=== PATIENT | male | born 1990 | race Caucasian/White ===

== ENCOUNTER 2017-02-13 20:41 | Emergency (ER) | payer SELFPAY ==
[2017-02-13] MEDS ORDERED: DIAZEPAM INJ 10 MG/2 ML DISP.SYRIN IM ONE (22:04)
--- NOTE | 2017-02-13 22:06 | ER Document Report ---
HPI - HPI Patient complains to provider of: Back pain, neck pain Pain Level: 4 Context: Patient is a 26-year-old male comes emergency department for chief complaint of pain in his mid left back that gives him sharp pains especially when he tries to move or lift, he also has pain that are intermittent in his left neck with intermittent headaches. He states that he hurt himself trying to move a table and he has not recovered since then. He denies any impact injury, numbness, history of IV drug abuse, fevers, nausea or vomiting, abdominal pain. He denies any daily medications or any surgeries. Past Medical History - General Information source: Patient - Social History Smoking Status: Never Smoker Frequency of alcohol use: None Drug Abuse: None Lives with: Family Family History: Reviewed & Not Pertinent - Medical History Medical History: Negative Renal/ Medical History: Denies: Hx Peritoneal Dialysis Surgical Hx: Negative - Immunizations Immunizations up to date: Yes Hx Diphtheria, Pertussis, Tetanus Vaccination: Yes Vertical Provider Document - CONSTITUTIONAL General Appearance: WD/WN, No Apparent Distress - INFECTION CONTROL TRAVEL OUTSIDE OF THE [place] IN LAST 30 DAYS: No - HEENT HEENT: Atraumatic, Normocephalic - RESPIRATORY Respiratory: Breath Sounds Normal, No Respiratory Distress O2 Sat by Pulse Oximetry: 99 - CARDIOVASCULAR Cardiovascular: Regular Rate, Regular Rhythm - GI/ABDOMEN Gastrointestinal: Abdomen Soft, Abdomen Non-Tender - BACK Back: negative: Normal Inspection - Very tender palpable muscle area in the upper left lumbar area, no midline tenderness, full range of motion of upper and lower extremities, normal distal neurovascular exam, no saddle anesthesia. Otherwise normal back exam except for mild paracervical tenderness on the left side. Normal range of motion of the neck. - NEURO Level of Consciousness: Awake, Alert, Appropriate Motor/Sensory: No Motor Deficit, No Sensory Deficit Course - Re-evaluation Re-evalutation: Patient with a sharp spasm and pain with movement. Very specific on examination. Very low suspicion of kidney stone, spinal cord abnormality, infection. Vital signs unremarkable. Patient will be treated for muscular source of pain, discussed follow-up, discussed return precautions, patient states understanding and agreement. - Vital Signs Vital signs: Temp Pulse Resp BP Pulse Ox 98.0 F 91 16 134/82 H 99 02/13/17 21:00 02/13/17 21:00 02/13/17 21:00 02/13/17 21:00 02/13/17 21:00 Discharge - Discharge Clinical Impression: Neck pain, Muscle spasm Lower back pain Qualifiers: Chronicity: acute Back pain laterality: left Sciatica presence: without sciatica Qualified Code(s): M54.5 - Low back pain Condition: Stable Disposition: HOME, SELF-CARE Additional Instructions: Your examination is consistent with muscular strain and spasm and also secondary tension headaches. You have begun treatment tonight, continue treatment with Robaxin as prescribed, apply heat to your neck and lower back, do gentle stretches, drink plenty of fluids. Follow-up with primary care. Return for any concerning symptoms including fever, vomiting, loss of bowel or bladder control, numbness, or any other concerning symptoms. Prescriptions: Methocarbamol [Robaxin 750 mg Tablet] 750 mg PO Q6 #20 tablet
[2017-02-13 22:24] VITALS: BP 130/78
== END 2017-02-13 22:18 | disposition home or self-care (01) ==
LOC: ER 20:41
DX: M54.5 Low back pain (principal); M62.838 Other muscle spasm; M54.2 Cervicalgia; R51 Headache
CPT/HCPCS: 99283; 96372; J3360